=== PATIENT | female | born 1930 | race Caucasian/White ===

== ENCOUNTER → 2016-05-04 | Outpatient (CLI) | payer MEDICARE, OTHER ==
[~2016-05-04] MED LIST: AMLO5 PO; ATOR10 PO; CITRTAB PO; CLOP75 PO; COUM3TAB PO; MELA1TAB3 PO
[2016-05-04 13:57] LABS: HDL CHOLESTEROL 51.7 MG/DL (40.0-60.0)
== END ==
LOC: PLAB 10:18
PROVIDERS: ATTEND Internal Medicine Cardiovascular Disease
DX: E78.5 Hyperlipidemia, unspecified (principal)
CPT/HCPCS: 36415; 80061

== ENCOUNTER 2016-10-26 12:00 | Observation (INO) | payer MEDICARE, OTHER ==
[~2016-10-26] VITALS: Ht 160 cm; Wt 85.0 kg
[2016-10-26 12:03] VITALS: BP 156/74; PULSE 77; RESP 15; TEMP 97.3; O2SAT 98
--- NOTE | 2016-10-26 12:09 | PD ---
Physical Exam Time Seen by Provider: 12:07 Narrative 86yo F c/o SOB, angina and R arm pain. Chest pain started last night; says chest pain is between her shoulder blades in her back. Took one nitro about 2 hours ago w/o relief. Patient seen in triage. VS reviewed. Patient awaiting bed placement. Data Data Last Documented VS Vital Signs Date Time Temp Pulse Resp B/P Pulse Ox O2 Delivery O2 Flow Rate FiO2 10/26/16 12:03 97.3 77 15 156/74 98 MDM Supervised Visit with BETH: Marli Wolf Oct 26, 2016 12:09
--- NOTE | 2016-10-26 14:18 | PD ---
HPI Chief Complaint: Chest Pain Time Seen by Provider: 14:16 Travel History International Travel<30 days: No Contact w/Intl Traveler<30days: No Traveled to known affect area: No History of Present Illness HPI 86-year-old female came to the emergency room with history of chest pain radiating to her left arm on and off for past 2-3 days. She told her daughter about it who made her come to the emergency room. No history of shortness of breath or syncopal episode. Currently patient does not seem to be in any significant distress. She had a right eyes subconjunctival hemorrhage and upon asking she said she has macular degeneration and got a shot in her eye. Patient is on Coumadin. Vital signs were otherwise stable. [facility] Past Medical History Narrative Medical List of her past medical, surgical, social and family history was reviewed from the nursing note. Arthritis: Yes Blood Disorders: No Heart Rhythm Problems: Yes Cancer: No Cardiac Catheterization: Yes Cardiovascular Problems: Yes High Cholesterol: Yes Congestive Heart Failure: Yes Cerebrovascular Accident: Yes Diabetes: No Endocrine: No Gastrointestinal Disorders: Yes GERD: Yes Genitourinary: Yes (RECURRENT UTI) Hiatal Hernia: Yes Hypertension: Yes Immune Disorder: No Implanted Vascular Access Dvce: Yes Kidney Stones: Yes Musculoskeletal: Yes Neurologic: Yes Psychiatric: No Reproductive: No Respiratory: Yes Sleep Apnea: Yes Past Surgical History Abdominal Surgery: Yes (AGE 18 APPENDECTOMY) Appendectomy: Yes Body Medical Devices: PLATE NECK Coronary Artery Bypass Graft: No Gynecologic Surgery: Yes (TUBAL LIGATION; HYSTERECTOMY OSKAR S&O) Joint Replacement: Yes Neurologic Surgery: Yes (ANTERIOR CERVICAL FUSION) Other Surgery: Yes Social History Alcohol Use: Yes (RARELY) Tobacco Use: No Substance Use: No Allergies-Medications (Allergen,Severity, Reaction): Coded Allergies: Penicillin (Verified Allergy, Severe, CARDIAC PROBLEMS, 10/26/16) Comments List of her allergies reviewed from the nursing note. Reported Meds & Prescriptions Reported Meds & Active Scripts Active Reported Zetia (Ezetimibe) 10 Mg Tab 10 Mg PO DAILY Temazepam 15 Mg Cap 15 Mg PO HS PRN Toprol XL (Metoprolol Succinate) 100 Mg Tab 150 Mg PO DAILY Norvasc (Amlodipine Besylate) 5 Mg Tab 5 Mg PO DAILY Isosorbide Mononitrate ER (Isosorbide Mononitrate) 30 Mg Palomo 30 Mg PO DAILY Lasix (Furosemide) 20 Mg Tab 20 Mg PO DAILY Plavix (Clopidogrel Bisulfate) 75 Mg Tab 75 Mg PO DAILY Narrative Medication List of her home medications reviewed from the nursing note. Review of Systems Except as stated in HPI: all other systems reviewed are Neg Physical Exam Narrative GENERAL: Awake, alert, elderly, no obvious distress SKIN: Focused skin assessment warm/dry. HEAD: Atraumatic. Normocephalic. EYES: Pupils equal and round. No scleral icterus. No injection or drainage. ENT: No nasal bleeding or discharge. Mucous membranes pink and moist. NECK: Trachea midline. No JVD. CARDIOVASCULAR: Regular rate and rhythm. No murmur appreciated. RESPIRATORY: No accessory muscle use. Clear to auscultation. Breath sounds equal bilaterally. GASTROINTESTINAL: Abdomen soft, non-tender, nondistended. Hepatic and splenic margins not palpable. MUSCULOSKELETAL: No obvious deformities. No clubbing. No cyanosis. No edema. NEUROLOGICAL: Awake and alert. No obvious cranial nerve deficits. Motor grossly within normal limits. Normal speech. PSYCHIATRIC: Appropriate mood and affect; insight and judgment normal. Data Data Last Documented VS Vital Signs Date Time Temp Pulse Resp B/P Pulse Ox O2 Delivery O2 Flow Rate FiO2 10/26/16 14:35 98 10/26/16 14:35 63 20 167/74 10/26/16 14:35 Nasal Cannula 2 10/26/16 12:03 97.3 Orders Electrocardiogram (10/26/16 ) Basic Metabolic Panel (Bmp) (10/26/16 14:28) Ckmb (Isoenzyme) Profile (10/26/16 14:28) Complete Blood Count With Diff (10/26/16 14:28) Magnesium (Mg) (10/26/16 14:28) Prothrombin Time / Inr (Pt) (10/26/16 14:28) Act Partial Throm Time (Ptt) (10/26/16 14:28) Troponin I (10/26/16 14:28) Chest, Single Ap (10/26/16 14:28) Ecg Monitoring (10/26/16 14:28) Bilateral Bp Monitoring (10/26/16 14:28) Iv Access Insert/Monitor (10/26/16 14:28) Oximetry (10/26/16 14:28) Oxygen Administration (10/26/16 14:28) Sodium Chloride 0.9% Flush (Ns Flush) (10/26/16 14:30) Morphine Inj (Morphine Inj) (10/26/16 15:00) Ondansetron Inj (Zofran Inj) (10/26/16 15:00) CKMB (10/26/16 14:59) CKMB% (10/26/16 14:59) Admit Order (Ed Use Only) (10/26/16 16:00) Labs Laboratory Tests Test 10/26/16 14:59 White Blood Count 8.6 TH/MM3 Red Blood Count 4.70 MIL/MM3 Hemoglobin 14.1 GM/DL Hematocrit 43.0 % Mean Corpuscular Volume 91.4 FL Mean Corpuscular Hemoglobin 30.0 PG Mean Corpuscular Hemoglobin 32.8 % Concent Red Cell Distribution Width 14.8 % Platelet Count 186 TH/MM3 Mean Platelet Volume 8.2 FL Neutrophils (%) (Auto) 65.5 % Lymphocytes (%) (Auto) 22.1 % Monocytes (%) (Auto) 9.4 % Eosinophils (%) (Auto) 2.5 % Basophils (%) (Auto) 0.5 % Neutrophils # (Auto) 5.7 TH/MM3 Lymphocytes # (Auto) 1.9 TH/MM3 Monocytes # (Auto) 0.8 TH/MM3 Eosinophils # (Auto) 0.2 TH/MM3 Basophils # (Auto) 0.0 TH/MM3 CBC Comment DIFF FINAL Differential Comment Prothrombin Time 42.9 SEC Prothromb Time International 3.7 RATIO Ratio Activated Partial 40.1 SEC Thromboplast Time Sodium Level 140 MEQ/L Potassium Level 4.4 MEQ/L Chloride Level 108 MEQ/L Carbon Dioxide Level 25.3 MEQ/L Anion Gap 7 MEQ/L Blood Urea Nitrogen 17 MG/DL Creatinine 0.85 MG/DL Estimat Glomerular Filtration 64 ML/MIN Rate Random Glucose 91 MG/DL Calcium Level 9.2 MG/DL Magnesium Level 2.2 MG/DL Total Creatine Kinase 217 U/L Creatine Kinase MB 0.7 NG/ML Creatine Kinase MB % 0.3 % Troponin I LESS THAN 0.02 NG/ML MDM Medical Decision Making Medical Screen Exam Complete: Yes Emergency Medical Condition: Yes Medical Record Reviewed: Yes Interpretation(s) Twelve-lead EKG was reviewed by me. Normal sinus rhythm, normal axis, nonspecific ST-T wave changes. Heart rate of 68 bpm. Differential Diagnosis ACS, non-STEMI Narrative Course 4:03 PM blood test results of back and within normal limit. INR is elevated however. Given her past history of coronary artery disease and the typical nature of the chest pain I would like to admit her to the chest pain center so that she can be evaluated by the supervisor laundry. Procedures EKG Prior to Arrival: No Diagnosis Primary Impression: Chest pain in adult Admitting Information Admitting Physician Requests: Observation Scripts Warfarin 4 Mg Tab4.5 Mg PO DAILY #30 TAB Ref 0 DO NOT TAKE WARFARIN TODAY. Prov:Steve Palmer 10/27/16 Sae Garcia MD Oct 26, 2016 14:17
[2016-10-26] MEDS ORDERED: PLAV75TA29 PO (14:30)
[2016-10-26] MEDS ORDERED: ISOS30TA3 PO (14:30)
[2016-10-26] MEDS ORDERED: TOPR100T PO (14:30)
[2016-10-26] MEDS ORDERED: SODIUM CHLORIDE 0.9% FLUSH 10 ML FLUSH IVF PRN (14:30)
[2016-10-26] MEDS ORDERED: FURO1TAB62 PO (14:30)
[2016-10-26] MEDS ORDERED: ZETI10TA5 PO (14:30)
[2016-10-26] MEDS ORDERED: AMLO5 PO (14:30)
[2016-10-26] MEDS ORDERED: WARF-20 PO (14:30)
[2016-10-26] MEDS ORDERED: TEMA15CA PO (14:30)
[2016-10-26 14:35] VITALS: BP 167/74; PULSE 63; RESP 20; O2SAT 98
[2016-10-26] MEDS ORDERED: MORPHINE SULFATE 4 MG/ML INJ IV PUSH ONE (15:00)
[2016-10-26] MEDS ORDERED: ONDANSETRON HCL 4 MG/2 ML VIAL IV PUSH ONE (15:00)
[2016-10-26 15:08] LABS: AUTOMATED NEUTROPHIL # 5.7 TH/MM3 (1.8-7.7); BASOPHIL % 0.5 % (0.0-2.0); EOSINOPHIL # 0.2 TH/MM3 (0-0.4); EOSINOPHIL % 2.5 % (0.0-4.0); HEMO FLAGS DIFF FINAL; LYMPH % 22.1 % (9.0-44.0); LYMPHOCYTE # 1.9 TH/MM3 (1.0-4.8); MEAN CELL VOLUME 91.4 FL (80.0-100.0); MEAN CORPUSCULAR HGB CONC 32.8 % (32.0-36.0); MONO % 9.4 % (0.0-8.0); NEUT % 65.5 % (16.0-70.0); PLATELET COUNT 186 TH/MM3 (150-450); RED CELL DISTRIBUTION WIDTH 14.8 % (11.6-17.2); WHITE BLOOD COUNT 8.6 TH/MM3 (4.0-11.0)
[2016-10-26 15:22] LABS: ANION GAP 7 MEQ/L (5-15); BICARBONATE 25.3 MEQ/L (21.0-32.0); BLOOD UREA NITROGEN 17 MG/DL (7-18); CHLORIDE 108 MEQ/L (98-107); GLOMERULAR FILTRATION RATE 64 ML/MIN (>89); MAGNESIUM 2.2 MG/DL (1.5-2.5); SODIUM (NA) 140 MEQ/L (136-145)
[2016-10-26 15:27] LABS: POTASSIUM 4.4 MEQ/L (3.5-5.1)
[2016-10-26 15:28] LABS: CREATINE KINASE 217 U/L (26-192)
[2016-10-26 15:42] LABS: CKMB 0.7 NG/ML (0.5-3.6)
[2016-10-26 15:57] LABS: APTT (PATIENT) 40.1 SEC (24.3-30.1); INTERNATIONAL NORMALIZED RATIO 3.7 RATIO; PROTHROMBIN TIME - PATIENT 42.9 SEC (9.8-11.6)
--- NOTE | 2016-10-26 16:17 | RADRPT ---
EXAM DATE/TIME: 10/26/2016 14:59 [facility] COMPARISON: No previous studies available for comparison. INDICATIONS : Chest pain. MEDICAL HISTORY : None. SURGICAL HISTORY : Coronary artery stent. ENCOUNTER: Initial ACUITY: 1 day PAIN SCORE: 4/10 LOCATION: chest FINDINGS: The lungs are clear. The heart is minimally enlarged. The pulmonary vascularity is normal. There is n o evidence for infiltrate or failure. The portion of the bony skeleton visualized is unremarkable. CONCLUSION: Compensated cardiomegaly otherwise negative . Heath Schultz MD FACR on October 26, 2016 at 16:15 Board Certified Radiologist. This report was verified electronically.
--- NOTE | 2016-10-26 16:32 | HHI.HP ---
[facility] Primary Care Physician Connie Goetz MD Chief Complaint Chest pain History of Present Illness is an 86-year-old female patient with a known medical history of CAD x 1 stent, hypertension, and atrial fibrillation on Coumadin who presented to the ED with complaints of posterior pain right between her shoulder blades. Patient states that last evening she went to lay down to sleep and noticed increasing shortness of breath, a sharp pain right between her shoulder blades that radiated down her right arm to her fingertips. Patient states she took a total of 2 Nitroglycerin tablets with relief of pain shortly after administration. Does admit to associate diaphoresis. Denies any associated abdominal pain, nausea or vomiting. Patient woke this am to reschedule a missed appointment with Dr. Goetz when the RN in his office sent her to the ED when told of recent symptoms. Patient does state that over the course of roughly 3 months she has had this similar posterior pain between her shoulder blades once every week and will eventually resolve on its own. She does state she has been in generally good health. Denies any recent illness such as fever, chills, cough. Review of Systems Cardiovascular: COMPLAINS OF: Chest pain (posterior sharp pain between shoulder blades ) Past Family Social History Allergies: Coded Allergies: Penicillin (Verified Allergy, Severe, CARDIAC PROBLEMS, 10/26/16) Past Medical History Hypertension Atrial fibrillation on Coumadin CAD x 1 stent in 2013 History of tobacco use. Arthritis Hyperlipidemia Congestive heart failure TIA x 2 over 20 years ago, no residual deficits GERD Sleep apnea Past Surgical History Appendectomy Cardiac stent placement Anterior cervical fusion Tubal ligation Hysterectomy Bilateral knee replacement Bladder surgery x 3 Reported Medications Reported Meds & Active Scripts Active Reported Zetia (Ezetimibe) 10 Mg Tab 10 Mg PO DAILY Temazepam 15 Mg Cap 15 Mg PO HS PRN Warfarin 4 Mg Tab 4.5 Mg PO DAILY Toprol XL (Metoprolol Succinate) 100 Mg Tab 150 Mg PO DAILY Norvasc (Amlodipine Besylate) 5 Mg Tab 5 Mg PO DAILY Isosorbide Mononitrate ER (Isosorbide Mononitrate) 30 Mg Palomo 30 Mg PO DAILY Lasix (Furosemide) 20 Mg Tab 20 Mg PO DAILY Plavix (Clopidogrel Bisulfate) 75 Mg Tab 75 Mg PO DAILY Active Ordered Medications Current Medications Medications (Trade) Dose Ordered Sig/Rosie Route Start Time Stop Time Status Last Admin (NS Flush) 2 ml UNSCH PRN IVF 10/26/16 14:30 Family History Paternal medical history significant for cardiovascular disease and kidney disease. Maternal medical history significant for cardiovascular disease. Brother's medical history significant for gastric cancer. Social History Patient is for 63 years. Denies any current tobacco use, does admit to a 20 year smoking history but quit 30 years ago. Admits to occasional alcohol use. Denies any illicit drug use. Physical Exam Vital Signs Vital Signs Date Time Temp Pulse Resp B/P Pulse Ox O2 Delivery O2 Flow Rate FiO2 10/26/16 14:35 98 10/26/16 14:35 63 20 167/74 10/26/16 14:35 Nasal Cannula 2 10/26/16 12:03 97.3 77 15 156/74 98 Physical Exam GENERAL: Alert WN, WD, NAD, pleasant, female. HEAD: NC, AT NECK: Supple, no masses, trachea midline CV: RRR, no JVD. 2/6 MR murmur. RESP: Clear lungs throughout bilateral, no crackles, wheeze, rhonchi, symmetrical chest rise, nonlabored, able to speak in full sentences ABD: Soft, NT, ND, no masses, positive bowel tones EXT: Pulses +24, no dependent edema MS: Normal tone 4 extremities, nontender, no obvious deformities, full range of motion NEURO: CN II through CN XII grossly intact, motor strength 5/5, gait WNL PSYCH: A+O 3, pleasant, appropriate speech, appropriate mood and affect, insight and judgment SKIN: Normal turgor, normal texture, no lesions, no rashes, brisk cap refill, even hair distribution Laboratory Laboratory Tests Test 10/26/16 14:59 White Blood Count 8.6 Red Blood Count 4.70 Hemoglobin 14.1 Hematocrit 43.0 Mean Corpuscular Volume 91.4 Mean Corpuscular Hemoglobin 30.0 Mean Corpuscular Hemoglobin 32.8 Concent Red Cell Distribution Width 14.8 Platelet Count 186 Mean Platelet Volume 8.2 Neutrophils (%) (Auto) 65.5 Lymphocytes (%) (Auto) 22.1 Monocytes (%) (Auto) 9.4 Eosinophils (%) (Auto) 2.5 Basophils (%) (Auto) 0.5 Neutrophils # (Auto) 5.7 Lymphocytes # (Auto) 1.9 Monocytes # (Auto) 0.8 Eosinophils # (Auto) 0.2 Basophils # (Auto) 0.0 CBC Comment DIFF FINAL Differential Comment Prothrombin Time 42.9 Prothromb Time International 3.7 Ratio Activated Partial 40.1 Thromboplast Time Sodium Level 140 Potassium Level 4.4 Chloride Level 108 Carbon Dioxide Level 25.3 Anion Gap 7 Blood Urea Nitrogen 17 Creatinine 0.85 Estimat Glomerular Filtration 64 Rate Random Glucose 91 Calcium Level 9.2 Magnesium Level 2.2 Total Creatine Kinase 217 Creatine Kinase MB 0.7 Creatine Kinase MB % 0.3 Troponin I LESS THAN 0.02 Result Diagram: 10/26/16 1459 10/26/16 1459 Imaging Last 48 hours Impressions Chest X-Ray 10/26/16 1428 Signed Impressions: Service Date/Time: Wednesday, October 26, 2016 14:59 - CONCLUSION: Compensated cardiomegaly otherwise negative . Heath Schultz MD FACR Course EKG NSR, LAD, t wave inversion III and AVF Assessment and Plan Assessment and Plan #1 Atypical chest pain: Admitted to the chest pain center. Serial EKGs and serial troponins ordered for ruling out purposes. CXR showing compensated cardiomegaly. EKG showing some T wave inversions in lead III and aVF. Dr. Cabrales has seen and examined patient. Will monitor patient on cardiac telemetry overnight. Patient's patternmaker bench is Dr. Goetz, Dr. Cabrales attempted to call with no answer. Will try again in am for further recommendations. #2 Hypertension: Mildly elevated. Will resume home Amlodipine and Metoprolol succinate as indicated. #3 Atrial fibrillation: Elevated INR 3.7. Hold Coumadin for now. Recheck INR in am. #4 Hyperlipidemia: Continue home Zetia #5 Congestive heart failure: Continue home Lasix. #6 CAD: Continue home Plavix and Imdur. Patient is currently stable and agreeable to the plan. Geraldine Leon Oct 26, 2016 16:32
[2016-10-26] MEDS ORDERED: ONDANSETRON HCL 4 MG/2 ML VIAL IV PRN (16:45)
[2016-10-26] MEDS ORDERED: ACETAMINOPHEN 500 MG CPLT PO PRN (16:45)
[2016-10-26] MEDS ORDERED: NITROGLYCERIN 0.4 MG SL 25 TABS/BTL SL PRN (16:45)
[2016-10-26] MEDS ORDERED: amLODIPine BESYLATE 5 MG TAB PO ONE (19:15)
[2016-10-26 19:51] LABS: CREATINE KINASE 195 U/L (26-192)
[2016-10-26 20:18] VITALS: BP 133/60; PULSE 63; RESP 18; TEMP 98.4; O2SAT 94
[2016-10-26 20:33] VITALS: PULSE 69
[2016-10-26] MEDS ORDERED: TEMAZEPAM 15 MG CAP PO PRN (21:00)
[2016-10-26] MEDS ORDERED: SODIUM CHLORIDE 0.9% FLUSH 10 ML FLUSH IV FLUSH SCH (21:00)
[2016-10-26 22:58] LABS: CREATINE KINASE 180 U/L (26-192)
[2016-10-26 23:10] LABS: CKMB 0.9 NG/ML (0.5-3.6)
[2016-10-27 00:02] VITALS: PULSE 65
[2016-10-27 01:25] VITALS: BP 122/62; PULSE 76; RESP 18; TEMP 98.5; O2SAT 97
[2016-10-27 04:24] VITALS: PULSE 60
[2016-10-27 05:00] VITALS: BP 125/60; PULSE 74; RESP 18; TEMP 98.7; O2SAT 92
[2016-10-27 08:00] VITALS: BP 128/62; PULSE 65; RESP 19; TEMP 97.9; O2SAT 93
[2016-10-27] MEDS ORDERED: WARF-20 PO (08:57)
--- NOTE | 2016-10-27 08:57 | HHI.DCPOC ---
Discharge Care Plan Diagnosis: (1) Chest pain (2) CAD (coronary artery disease) (3) Hypertension (4) Paroxysmal a-fib (5) Hyperlipidemia (6) H/O heart artery stent Goals to Promote Your Health RETURN TO EMERGENCY DEPARTMENT IF CHEST PAIN RETURNS. * To prevent worsening of your condition and complications * To maintain your health at the optimal level Directions to Meet Your Goals Take your medications as prescribed Follow your dietary instruction Follow activity as directed Keep your appointments as scheduled Take your immunizations and boosters as scheduled If your symptoms worsen call your PCP, if no PCP go to Urgent Care Center or Emergency Room Smoking is Dangerous to Your Health. Avoid second hand smoke Call the 24-hour hour crisis hotline for domestic abuse at Steve Palmer Oct 27, 2016 08:57
[2016-10-27] MEDS ORDERED: ISOSORBIDE MONONITRATE 30 MG TAB PO SCH (09:00)
[2016-10-27] MEDS ORDERED: EZETIMIBE 10 MG TAB PO SCH (09:00)
[2016-10-27] MEDS ORDERED: FUROSEMIDE 20 MG TAB PO SCH (09:00)
[2016-10-27] MEDS ORDERED: CLOPIDOGREL 75 MG TAB PO SCH (09:00)
[2016-10-27] MEDS ORDERED: ASPIRIN 325 MG TAB PO SCH (09:00)
[2016-10-27] MEDS ORDERED: METOPROLOL SUCCINATE 50 MG EXTENDED RELEASE TAB PO SCH (09:00)
[2016-10-27] MEDS ORDERED: amLODIPine BESYLATE 5 MG TAB PO SCH (09:00)
--- NOTE | 2016-10-27 09:07 | PD.CARD.PN ---
Subjective Subjective Remarks Had no chest discomfort overnight. Offers no complaint. Objective Vital Signs / I&O Vital Signs Date Time Temp Pulse Resp B/P Pulse Ox O2 Delivery O2 Flow Rate FiO2 10/27/16 08:00 97.9 65 19 128/62 93 10/27/16 05:00 98.7 74 18 125/60 92 10/27/16 04:24 60 10/27/16 01:25 98.5 76 18 122/62 97 10/27/16 00:02 65 10/26/16 20:33 69 10/26/16 20:18 98.4 63 18 133/60 94 10/26/16 14:35 98 10/26/16 14:35 63 20 167/74 10/26/16 14:35 Nasal Cannula 2 10/26/16 12:03 97.3 77 15 156/74 98 Physical Exam Lungs: CTA. Cardiac: Regular rate and rhythm. Grade 2/6 MR murmur. GI: Nontender. Normal bowel sounds. Laboratory Laboratory Tests Test 10/26/16 10/26/16 10/26/16 14:59 19:08 22:10 White Blood Count 8.6 TH/MM3 Red Blood Count 4.70 MIL/MM3 Hemoglobin 14.1 GM/DL Hematocrit 43.0 % Mean Corpuscular Volume 91.4 FL Mean Corpuscular Hemoglobin 30.0 PG Mean Corpuscular Hemoglobin 32.8 % Concent Red Cell Distribution Width 14.8 % Platelet Count 186 TH/MM3 Mean Platelet Volume 8.2 FL Neutrophils (%) (Auto) 65.5 % Lymphocytes (%) (Auto) 22.1 % Monocytes (%) (Auto) 9.4 % Eosinophils (%) (Auto) 2.5 % Basophils (%) (Auto) 0.5 % Neutrophils # (Auto) 5.7 TH/MM3 Lymphocytes # (Auto) 1.9 TH/MM3 Monocytes # (Auto) 0.8 TH/MM3 Eosinophils # (Auto) 0.2 TH/MM3 Basophils # (Auto) 0.0 TH/MM3 CBC Comment DIFF FINAL Differential Comment Prothrombin Time 42.9 SEC Prothromb Time International 3.7 RATIO Ratio Activated Partial 40.1 SEC Thromboplast Time Sodium Level 140 MEQ/L Potassium Level 4.4 MEQ/L Chloride Level 108 MEQ/L Carbon Dioxide Level 25.3 MEQ/L Anion Gap 7 MEQ/L Blood Urea Nitrogen 17 MG/DL Creatinine 0.85 MG/DL Estimat Glomerular Filtration 64 ML/MIN Rate Random Glucose 91 MG/DL Calcium Level 9.2 MG/DL Magnesium Level 2.2 MG/DL Total Creatine Kinase 217 U/L 195 U/L 180 U/L Creatine Kinase MB 0.7 NG/ML 1.0 NG/ML 0.9 NG/ML Creatine Kinase MB % 0.3 % 0.5 % Troponin I LESS THAN 0.02 LESS THAN 0.02 0.02 NG/ML NG/ML NG/ML Assessment and Plan Assessment and Plan * Chest pain: Patient doesn't history of CAD. She was seen by Dr. Flakito Cabrales yesterday. I spoke with the patient's compensation director Dr. Goetz this morning. He is requesting the patient be discharged home and he will see her in his office tomorrow. Our community health promoter is scheduled upon for more morning and the time will be provided to the patient before she is discharged. She will hold her warfarin today and get further instruction by Dr. Goetz tomorrow. Her INR is 3.7 yesterday. Otherwise resume all home medications. Patient has been advised to return to the ED if chest pains recur. Steve Palmer Oct 27, 2016 09:07
--- NOTE | 2016-10-27 17:25 | EKG ---
Date Performed: 10/26/2016 Time Performed: 22:28:13 PTAGE: 86 years EKG: Sinus rhythm NORMAL ECG Since PREVIOUS TRACING , no significant change noted PREVIOUS TRACIN10/26/2016 17.34 DOCTOR: Mariana Thakkar Interpretating Date/Time 10/27/2016 17:24:18
--- NOTE | 2016-10-27 17:31 | EKG ---
Date Performed: 10/26/2016 Time Performed: 17:34:10 PTAGE: 86 years EKG: SINUS BRADYCARDIA MINIMAL VOLTAGE CRITERIA FOR LVH, CONSIDER NORMAL VARIANT BORDERLINE ECG Since PREVIOUS TRACING , no significant change noted PREVIOUS TRACIN10/26/2016 12.16 DOCTOR: Mariana Thakkar Interpretating Date/Time 10/27/2016 17:29:07
--- NOTE | 2016-10-27 17:31 | EKG ---
Date Performed: 10/26/2016 Time Performed: 12:16:56 PTAGE: 86 years EKG: Sinus rhythm ABNORMAL QRS-T ANGLE ABNORMAL ECG Since PREVIOUS TRACING , no significant change noted PREVIOUS TRACIN10/03/2013 17.11 DOCTOR: Mariana Thakkar Interpretating Date/Time 10/27/2016 17:30:24
== END 2016-10-27 14:00 | disposition home or self-care (01) ==
LOC: NEPE 12:00 → NEDA 16:01 → NEPFCDU 18:06
PROVIDERS: ADMIT Internal Medicine Cardiovascular Disease; ATTEND Internal Medicine Cardiovascular Disease
DX: R07.89 Other chest pain (principal); I11.0 Hypertensive heart disease with heart failure; I50.9 Heart failure, unspecified; I48.0 Paroxysmal atrial fibrillation; K21.9 Gastro-esophageal reflux disease without esophagitis; E78.5 Hyperlipidemia, unspecified; I25.10 Atherosclerotic heart disease of native coronary artery without angina pectoris; M19.90 Unspecified osteoarthritis, unspecified site; R94.31 Abnormal electrocardiogram [ECG] [EKG]; G47.30 Sleep apnea, unspecified; Z95.5 Presence of coronary angioplasty implant and graft; E78.00 Pure hypercholesterolemia, unspecified; Z86.73 Personal history of transient ischemic attack (TIA), and cerebral infarction without residual deficits; Z79.01 Long term (current) use of anticoagulants; Z79.899 Other long term (current) drug therapy
CPT/HCPCS: 71010; 80048; 82550; 82552; 83735; 84484; 85025; 85610; 85730; 93005; 96374; 96375; 99285; G0378; J2270; J2405

== ENCOUNTER → 2016-12-21 | Outpatient (CLI) | payer MEDICARE, OTHER ==
[~2016-12-21] MED LIST changes: -ATOR10 PO; -CITRTAB PO; -CLOP75 PO; -COUM3TAB PO; +FURO1TAB62 PO; +ISOS30TA3 PO; -MELA1TAB3 PO; +PLAV75TA29 PO; +TEMA15CA PO; +TOPR100T PO; +WARF-20 PO; +ZETI10TA5 PO
== END ==
LOC: PLAB 08:19
PROVIDERS: ATTEND Urology
DX: N30.20 Other chronic cystitis without hematuria (principal)
CPT/HCPCS: 36415; 82565; 84520

== ENCOUNTER 2017-08-29 22:51 | Emergency (ER) | payer MEDICARE, OTHER ==
[~2017-08-29] VITALS: Ht 160 cm; Wt 81.8 kg
[~2017-08-29 22:51] MED LIST changes: +EZET10 PO; -ZETI10TA5 PO
[2017-08-29 22:59] VITALS: BP 176/77; PULSE 89; RESP 20; TEMP 97.5; O2SAT 95
[2017-08-29] MEDS ORDERED: NITR1SUB3 SL (23:14)
[2017-08-29] MEDS ORDERED: OXYB10TA PO (23:14)
[2017-08-29] MEDS ORDERED: WARF-20 PO (23:14)
[2017-08-29] MEDS ORDERED: pain med (23:14)
[2017-08-29] MEDS ORDERED: ASPIRIN 81 MG CHEW TAB PO ONE (23:30)
[2017-08-29] MEDS ORDERED: ONDANSETRON ODT 4 MG TAB PO ONE (23:30)
[2017-08-29] MEDS ORDERED: MORPHINE SULFATE 4 MG/ML INJ IV PUSH ONE (23:30)
[2017-08-29] MEDS ORDERED: SODIUM CHLORIDE 0.9% FLUSH 10 ML FLUSH IVF PRN (23:30)
--- NOTE | 2017-08-29 23:39 | PD ---
HPI Chief Complaint: Chest Pain Time Seen by Provider: 23:07 Travel History International Travel<30 days: No Contact w/Intl Traveler<30days: No Traveled to known affect area: No History of Present Illness HPI The patient is a 87-year-old female who presents to emergency department for left scapular pain. The patient states the pain in the left scapula started while she was lying in bed earlier tonight around 7 PM. The patient states the pain is located just under the scapula, worse when she moves to the left as well as the right, also notes it is tender to palpation. She denies any radiation of the pain to the chest. She denies any chest pain, new shortness of breath, nausea, vomiting, or diaphoresis. The patient took "2 blue pills "at home that did not help the pain. The patient does have a history of anticoagulation with warfarin, however, the patient is unsure why she takes warfarin. The patient is a somewhat limited and poor historian. She denies any diaphoresis, nausea, vomiting, or abdominal pain. She is unsure if she has any history of shingles but denies any rash of the left side. The patient's primary physician is Dr. Edgardo Reardon and the patient's tractor mechanic is Dr. Braswell. [facility] Past Medical History Arthritis: Yes Blood Disorders: No Heart Rhythm Problems: Yes Cancer: No Cardiac Catheterization: Yes Cardiovascular Problems: Yes (stent x1) High Cholesterol: Yes Chest Pain: Yes Congestive Heart Failure: Yes Cerebrovascular Accident: Yes Diabetes: No Endocrine: No Gastrointestinal Disorders: Yes GERD: Yes Genitourinary: Yes (RECURRENT UTI) Hiatal Hernia: Yes Heparin Induced Thrombocytopen: No Hypertension: Yes Immune Disorder: No Implanted Vascular Access Dvce: Yes (knee replacements) Kidney Stones: Yes Musculoskeletal: Yes Neurologic: Yes Psychiatric: No Reproductive: No Respiratory: Yes Sleep Apnea: Yes Tetanus Vaccination: Unknown ?: Not Past Surgical History Abdominal Surgery: Yes (AGE 18 APPENDECTOMY) Appendectomy: Yes Body Medical Devices: PLATE NECK Coronary Artery Bypass Graft: No Gynecologic Surgery: Yes (TUBAL LIGATION; HYSTERECTOMY OSKAR S&O) Hysterectomy: Yes Joint Replacement: Yes (oskar knee replace) Neurologic Surgery: Yes (ANTERIOR CERVICAL FUSION) Other Surgery: Yes Family History Family Myocardial Infarction: Yes (mother) Social History Alcohol Use: Yes (RARELY) Tobacco Use: No Substance Use: No Allergies-Medications (Allergen,Severity, Reaction): Coded Allergies: penicillin G (Unverified Allergy, Severe, CARDIAC PROBLEMS, 11/08/16) Reported Meds & Prescriptions Reported Meds & Active Scripts Active Reported [pain med] Oxybutynin ER 24 HR (Oxybutynin Chloride) 10 Mg Tab 10 Mg PO DAILY Warfarin 4 Mg Tab 4 Mg PO DAILY Nitroglycerin SL (Nitroglycerin) 0.4 Mg Subl 0.4 Mg SL DIRECTED PRN ONE TABLET UNDER THE TONGUE NEEDED FOR CHEST PAIN, MAY REPEAT EVERY FIVE MINUTES FOR A TOTAL OF 3 DOSES OR CALL 911 IF NO RELIEF Zetia (Ezetimibe) 10 Mg Tab 10 Mg PO DAILY Temazepam 15 Mg Cap 15 Mg PO HS PRN Toprol XL (Metoprolol Succinate) 100 Mg Tab 100 Mg PO DAILY take 1 tablet po in am and 1/2 tablet po hs Norvasc (Amlodipine Besylate) 5 Mg Tab 5 Mg PO DAILY Isosorbide Mononitrate ER (Isosorbide Mononitrate) 30 Mg Palomo 30 Mg PO DAILY Lasix (Furosemide) 20 Mg Tab 20 Mg PO DAILY Plavix (Clopidogrel Bisulfate) 75 Mg Tab 75 Mg PO DAILY Review of Systems Except as stated in HPI: all other systems reviewed are Neg General / Constitutional: No: Fever HENT: No: Lightheadedness Cardiovascular: No: Chest Pain or Discomfort, Diaphoresis Respiratory: No: Shortness of Breath Gastrointestinal: No: Nausea, Vomiting, Abdominal Pain Musculoskeletal: Positive: Pain, No: Weakness Skin: No Rash Neurologic: No: Dizziness, Focal Abnormalities Physical Exam Narrative GENERAL: Awake, alert, pleasant 87-year-old female who appears her stated age and is in no acute respiratory distress. SKIN: Focused skin assessment warm/dry. No stigmata of shingles. HEAD: Atraumatic. Normocephalic. EYES: Pupils equal and round. No scleral icterus. No injection or drainage. ENT: No nasal bleeding or discharge. Mucous membranes pink and moist. NECK: Trachea midline. No JVD. CARDIOVASCULAR: Regular rate and rhythm. No murmur appreciated. RESPIRATORY: No accessory muscle use. Clear to auscultation. Breath sounds equal bilaterally. GASTROINTESTINAL: Abdomen soft, non-tender, nondistended. Back: Tenderness along the left paravertebral muscles of the thoracic area and subscapular area. I am able to reproduce her pain with palpation and rotation of the thorax. MUSCULOSKELETAL: No obvious deformities. No clubbing. No cyanosis. No edema. NEUROLOGICAL: Awake and alert. No obvious cranial nerve deficits. Motor grossly within normal limits. Normal speech. PSYCHIATRIC: Appropriate mood and affect; insight and judgment normal. Data Data Last Documented VS Vital Signs Date Time Temp Pulse Resp B/P (MAP) Pulse Ox O2 Delivery O2 Flow Rate FiO2 08/29/17 23:52 Room Air 08/29/17 22:59 97.5 89 20 176/77 (110) 95 Orders Orders Electrocardiogram (08/29/17 23:30) Ckmb (Isoenzyme) Profile (08/29/17 23:30) Complete Blood Count With Diff (08/29/17 23:30) Comprehensive Metabolic Panel (08/29/17 23:30) Magnesium (Mg) (08/29/17 23:30) Prothrombin Time / Inr (Pt) (08/29/17 23:30) Act Partial Throm Time (Ptt) (08/29/17 23:30) Troponin I (08/29/17 23:30) Lipase (08/29/17 23:30) Ecg Monitoring (08/29/17 23:30) Bilateral Bp Monitoring (08/29/17 23:30) Iv Access Insert/Monitor (08/29/17 23:30) Oximetry (08/29/17 23:30) Oxygen Administration (08/29/17 23:30) Aspirin Chew (Aspirin Chew) (08/29/17 23:30) Morphine Inj (Morphine Inj) (08/29/17 23:30) Sodium Chloride 0.9% Flush (Ns Flush) (08/29/17 23:30) Chest, Pa & Lat (08/29/17 23:30) Ondansetron Odt (Zofran Odt) (08/29/17 23:30) CKMB (08/29/17 23:38) CKMB% (08/29/17 23:38) Troponin I (08/30/17 02:38) Ed Discharge Order (08/30/17 03:09) Labs Laboratory Tests Test 08/29/17 23:38 08/30/17 02:23 08/30/17 02:24 White Blood Count 7.3 TH/MM3 Red Blood Count 4.56 MIL/MM3 Hemoglobin 13.9 GM/DL Hematocrit 41.2 % Mean Corpuscular Volume 90.3 FL Mean Corpuscular Hemoglobin 30.6 PG Mean Corpuscular Hemoglobin Concent 33.8 % Red Cell Distribution Width 15.1 % Platelet Count 171 TH/MM3 Mean Platelet Volume 8.3 FL Neutrophils (%) (Auto) 52.3 % Lymphocytes (%) (Auto) 32.9 % Monocytes (%) (Auto) 10.1 % Eosinophils (%) (Auto) 4.0 % Basophils (%) (Auto) 0.7 % Neutrophils # (Auto) 3.8 TH/MM3 Lymphocytes # (Auto) 2.4 TH/MM3 Monocytes # (Auto) 0.7 TH/MM3 Eosinophils # (Auto) 0.3 TH/MM3 Basophils # (Auto) 0.1 TH/MM3 CBC Comment DIFF FINAL Differential Comment Blood Urea Nitrogen 20 MG/DL Creatinine 0.99 MG/DL Random Glucose 93 MG/DL Total Protein 7.2 GM/DL Albumin 3.3 GM/DL Calcium Level 9.0 MG/DL Magnesium Level 2.0 MG/DL Alkaline Phosphatase 68 U/L Aspartate Amino Transf (AST/SGOT) 20 U/L Alanine Aminotransferase (ALT/SGPT) 19 U/L Total Bilirubin 0.2 MG/DL Sodium Level 142 MEQ/L Potassium Level 3.8 MEQ/L Chloride Level 110 MEQ/L Carbon Dioxide Level 22.7 MEQ/L Anion Gap 9 MEQ/L Estimat Glomerular Filtration Rate 53 ML/MIN Total Creatine Kinase 161 U/L Creatine Kinase MB 0.7 NG/ML Troponin I LESS THAN 0.02 NG/ML LESS THAN 0.02 NG/ML Lipase 82 U/L Prothrombin Time 16.7 SEC Prothromb Time International Ratio 1.7 RATIO Activated Partial Thromboplast Time 28.3 SEC [place] Medical Decision Making Medical Screen Exam Complete: Yes Emergency Medical Condition: Yes Medical Record Reviewed: Yes Interpretation(s) EKG reveals sinus rhythm with sinus arrhythmia. No ischemic changes noted. Last Impressions Chest X-Ray 08/29/17 0700 Signed Impressions: CONCLUSION: Mild bibasilar infiltrates suggestive of atelectasis.. Laboratory Tests Test 08/29/17 23:38 08/30/17 02:23 08/30/17 02:24 White Blood Count 7.3 TH/MM3 Red Blood Count 4.56 MIL/MM3 Hemoglobin 13.9 GM/DL Hematocrit 41.2 % Mean Corpuscular Volume 90.3 FL Mean Corpuscular Hemoglobin 30.6 PG Mean Corpuscular Hemoglobin Concent 33.8 % Red Cell Distribution Width 15.1 % Platelet Count 171 TH/MM3 Mean Platelet Volume 8.3 FL Neutrophils (%) (Auto) 52.3 % Lymphocytes (%) (Auto) 32.9 % Monocytes (%) (Auto) 10.1 % Eosinophils (%) (Auto) 4.0 % Basophils (%) (Auto) 0.7 % Neutrophils # (Auto) 3.8 TH/MM3 Lymphocytes # (Auto) 2.4 TH/MM3 Monocytes # (Auto) 0.7 TH/MM3 Eosinophils # (Auto) 0.3 TH/MM3 Basophils # (Auto) 0.1 TH/MM3 CBC Comment DIFF FINAL Differential Comment Blood Urea Nitrogen 20 MG/DL Creatinine 0.99 MG/DL Random Glucose 93 MG/DL Total Protein 7.2 GM/DL Albumin 3.3 GM/DL Calcium Level 9.0 MG/DL Magnesium Level 2.0 MG/DL Alkaline Phosphatase 68 U/L Aspartate Amino Transf (AST/SGOT) 20 U/L Alanine Aminotransferase (ALT/SGPT) 19 U/L Total Bilirubin 0.2 MG/DL Sodium Level 142 MEQ/L Potassium Level 3.8 MEQ/L Chloride Level 110 MEQ/L Carbon Dioxide Level 22.7 MEQ/L Anion Gap 9 MEQ/L Estimat Glomerular Filtration Rate 53 ML/MIN Total Creatine Kinase 161 U/L Creatine Kinase MB 0.7 NG/ML Troponin I LESS THAN 0.02 NG/ML LESS THAN 0.02 NG/ML Lipase 82 U/L Prothrombin Time 16.7 SEC Prothromb Time International Ratio 1.7 RATIO Activated Partial Thromboplast Time 28.3 SEC Differential Diagnosis Differential diagnosis includes musculoskeletal pain, atypical angina, dissection, pulmonary embolism, pleural effusion, pneumonia, shingles. Narrative Course IV was established, labs are drawn and sent, and the patient was placed on cardiac telemetry monitoring and continuous pulse oximetry monitoring. EKG was ordered and interpreted. The patient's pain is reproducible on the left para vertebral and inferior scapular area. Most likely this represents muscular skeletal pain, but patient does have a history of multiple risk factors for ACS , therefore, EKG was ordered and interpreted and troponin was sent to lab. The patient is anticoagulated with warfarin, therefore, was administered morphine 2 million g intravenously for pain. The patient's INR is 1.7. Chest x-ray reveals atelectasis. The patient's second troponin is less than 0.02. The patient's pain appears to be muscular skeletal, initial troponin and serial troponin are negative. The patient is comfortable with this plan of care and disposition. The patient will be provided a copy of her labs and chest x-ray results at discharge. She is advised to follow-up with her primary physician. Diagnosis Primary Impression: Pain of left scapula Patient Instructions: General Instructions Additional Instructions: Continue medications as previously directed. Please provide the patient a copy of her EKG, lab results, chest x-ray results at discharge. Follow-up with your primary physician. Return if symptoms worsen or progress. Disposition: 01 DISCHARGE HOME Condition: Stable Moise Palacios MD Aug 29, 2017 23:38
[2017-08-29 23:47] LABS: AUTOMATED NEUTROPHIL # 3.8 TH/MM3 (1.8-7.7); BASOPHIL # 0.1 TH/MM3 (0-0.2); BASOPHIL % 0.7 % (0.0-2.0); EOSINOPHIL # 0.3 TH/MM3 (0-0.4); HEMATOCRIT 41.2 % (35.0-46.0); HEMOGLOBIN 13.9 GM/DL (11.6-15.3); LYMPH % 32.9 % (9.0-44.0); LYMPHOCYTE # 2.4 TH/MM3 (1.0-4.8); MEAN CELL VOLUME 90.3 FL (80.0-100.0); MEAN CORPUSCULAR HEMOGLOBIN 30.6 PG (27.0-34.0); MEAN CORPUSCULAR HGB CONC 33.8 % (32.0-36.0); MEAN PLATELET VOLUME 8.3 FL (7.0-11.0); MONO % 10.1 % (0.0-8.0); MONOCYTE # 0.7 TH/MM3 (0-0.9); NEUT % 52.3 % (16.0-70.0); PLATELET COUNT 171 TH/MM3 (150-450); RED BLOOD COUNT 4.56 MIL/MM3 (4.00-5.30); RED CELL DISTRIBUTION WIDTH 15.1 % (11.6-17.2); WHITE BLOOD COUNT 7.3 TH/MM3 (4.0-11.0)
[2017-08-30 00:03] LABS: ALBUMIN 3.3 GM/DL (3.4-5.0); AST (GOT) 20 U/L (15-37); BICARBONATE 22.7 MEQ/L (21.0-32.0); BLOOD UREA NITROGEN 20 MG/DL (7-18); CHLORIDE 110 MEQ/L (98-107); CREATININE 0.99 MG/DL (0.50-1.00); GLOMERULAR FILTRATION RATE 53 ML/MIN (>89); GLUCOSE,RANDOM 93 MG/DL (74-106); SODIUM (NA) 142 MEQ/L (136-145)
[2017-08-30 00:04] LABS: ALT (GPT) 19 U/L (10-53)
[2017-08-30 00:08] LABS: ALKALINE PHOSPHATASE 68 U/L (45-117); TOTAL BILIRUBIN ADULT 0.2 MG/DL (0.2-1.0); TOTAL PROTEIN 7.2 GM/DL (6.4-8.2); TROPONIN I LESS THAN 0.02 NG/ML (0.02-0.05)
--- NOTE | 2017-08-30 00:11 | RADRPT ---
EXAM DATE: 08/30/2017 12:05 AM EDT AGE/SEX: 87 years / Female INDICATIONS: Left upper chest pain. CLINICAL DATA: This is the patient's initial encounter. Patient reports that signs and symptoms have been present for 1 day and indicates a pain score of 4/10. MEDICAL/SURGICAL HISTORY: Congestive heart failure. Hypertension. Angina. . Cardiac catheteri zation. COMPARISON: [facility] – [place]ST SING[place], 10/26/2016. . FINDINGS: There is some mild bibasal infiltrates suggestive of atelectasis. Otherwise, the lungs are grossly cl ear. No pleural effusions or pulmonary edema. The heart size is upper limits of normal. The bony stru ctures are stable. There is scoliosis and curvature of the thoracic spine to the right. No other new or significant changes CONCLUSION: Mild bibasilar infiltrates suggestive of atelectasis.. Electronically signed by: Stephen Powell MD 08/30/2017 12:09 AM EDT
[2017-08-30 02:44] LABS: INTERNATIONAL NORMALIZED RATIO 1.7 RATIO; PROTHROMBIN TIME - PATIENT 16.7 SEC (9.8-11.6)
--- NOTE | 2017-08-30 19:05 | EKG ---
Date Performed: 08/29/2017 Time Performed: 22:06:30 PTAGE: 87 years EKG: Sinus rhythm WITH SINUS ARRHYTHMIA NORMAL ECG PREVIOUS TRACING : 10/26/2016 22.28 Since the previous tracing, no significant change noted DOCTOR: Rossy Ramirez Interpretating Date/Time 08/30/2017 19:04:51
== END 2017-08-30 08:04 | disposition home or self-care (01) ==
LOC: NEPE 22:51
DX: M25.512 Pain in left shoulder (principal); I11.0 Hypertensive heart disease with heart failure; I50.9 Heart failure, unspecified; K21.9 Gastro-esophageal reflux disease without esophagitis; E78.00 Pure hypercholesterolemia, unspecified; Z86.73 Personal history of transient ischemic attack (TIA), and cerebral infarction without residual deficits; Z87.440 Personal history of urinary (tract) infections; Z87.442 Personal history of urinary calculi
CPT/HCPCS: 71046; 80053; 82550; 82552; 83690; 83735; 84484; 85025; 85610; 85730; 93005; 96374; 99285; J2270